=== PATIENT | female | born 1960 | race Caucasian/White ===

== ENCOUNTER 2022-02-09 05:32 | Outpatient (CLI) | payer OTHER ==
[~2022-02-09] VITALS: Ht 152.4 cm; Wt 77.3 kg
[2022-02-09] MEDS ORDERED: IBUP-2185 PO (16:51)
[2022-02-09] MEDS ORDERED: [UNRECOGNIZED DRUG - OTHER] (16:51)
[2022-02-09] MEDS ORDERED: ASPI-992 PO (16:51)
[2022-02-09] MEDS ORDERED: YOUNG LIVING OILS (16:51)
[2022-02-09] MEDS ORDERED: CETI10TA49 PO (16:51)
== END 2022-02-09 16:59 | disposition home or self-care (01) ==
LOC: PREOP 05:32
PROVIDERS: ATTEND Specialist
DX: Z01.818 Encounter for other preprocedural examination (principal)

== ENCOUNTER 2022-02-12 09:57 | Day surgery (SDC) | payer OTHER ==
[~2022-02-12] VITALS: Ht 152.4 cm; Wt 77.3 kg
[~2022-02-12 09:57] MED LIST: ASPI-992 PO; CETI10TA49 PO; IBUP-2185 PO; YOUNG LIVING OILS; [UNRECOGNIZED DRUG - OTHER]
[2022-02-12 10:45] VITALS: BP 169/98
[2022-02-12] MEDS: TETRACAINE 0.5% OPHTH SOLN 4 ML BTL (SINGLE DOSE ONLY) OU PRN ×4 (10:50→11:06)
[2022-02-12] MEDS: TROPICAMIDE 1% OPH SOLN (MYDRIACYL) 15 ML BTL OP SCH ×3 (10:56→11:06)
[2022-02-12] MEDS: PHENYLEPHRINE 10% OPHTH (NEO-SYN) 5 ML BTL OU SCH ×3 (10:56→11:06)
[2022-02-12] MEDS ORDERED: TIMOLOL MALEATE 0.5% 5 ML (TIMOPTIC) BTL OU PRN (11:00)
[2022-02-12] MEDS ORDERED: POVIDONE (BETADINE) OPHTH SOLN 5% 30 ML OP ONE (11:00)
[2022-02-12] MEDS ORDERED: MOXIFLOXACIN OPHTH SOLN 5 MG/ML 0.3 ML SYRINGE OP ONE (11:00)
--- NOTE | 2022-02-12 11:18 | Ophthalmologist Pre-Op Note ---
Pre-Operative Progress Note H&P Reviewed The H&P was reviewed, patient examined and no changes noted. Date H&P Reviewed: Feb 12, 2022 Time H&P Reviewed: 11:18 Pre-Op Dx Cataract, Right Eye ALLYSON PRIETO MD Feb 12, 2022 11:18
[2022-02-12] MEDS ORDERED: MIDAZOLAM 2 MG/2 ML (VERSED) VIAL ONE (11:24)
--- NOTE | 2022-02-12 11:38 | Ophthalmology Operative Report ---
Cataract removal/placement IOL PREOPERATIVE DIAGNOSIS: Cataract Right Eye POSTOPERATIVE DIAGNOSIS: Cataract Right Eye PROCEDURE: Cataract removal and placement of posterior chamber implant, right eye SURGEON: Tomas Prieto ANESTHESIA: Topical with sedation COMPLICATIONS: None ESTIMATED BLOOD LOSS: Minimal DESCRIPTION OF PROCEDURE: After proper informed consent was obtained, the patient, a 62 female, was taken to the Operating Room and the right eye was anesthetized with tetracaine. The right eye was then prepped and draped in the usual manner. A wire lid speculum was placed. A paracentesis was made at the left hand position. Preservative free lidocaine was injected into the anterior chamber followed by viscoelastic. A clear corneal incision was made in the temporal position. A capsulorrhexis was preformed and the central nuclear and cortical material were removed. The posterior capsule was polished and Ceasar 21.5 AU00T0 IOL was placed into the capsular bag. The residual viscoelastic was aspirated and balanced saline solution was injected into the anterior chamber. Moxifloxacin was injected into the anterior chamber. The wound was checked and found to be water tight. The patient tolerated the procedure well without complications. TOMAS PRIETO MD Feb 12, 2022 11:38
[2022-02-12 12:00] VITALS: BP 167/90
[2022-02-12] MEDS ORDERED: acetaZOLAMIDE ER 500 MG CAP (DIAMOX SEQUELS) PO ONE (12:30)
--- NOTE | 2022-02-12 14:11 | Anesthesia-General Post-Op ---
MAC Patient Condition Mental Status/LOC: Same as Preop Cardiovascular: Satisfactory Nausea/Vomiting: Absent Respiratory: Satisfactory Pain: Controlled Complications: Absent Post Op Complications Complications None Follow Up Care/Instructions Patient Instructions None needed. Anesthesiology Discharge Order Discharge Order Patient is doing well, no complaints, stable vital signs, no apparent adverse anesthesia problems. No complications reported per nursing. MARGIE CHAVEZ CRNA Feb 12, 2022 14:11
== END 2022-02-12 12:36 | disposition home or self-care (01) ==
LOC: SDC 09:57
PROVIDERS: ATTEND Specialist
DX: H25.9 Unspecified age-related cataract (principal)